=== PATIENT | female | born 1980 | race African-American/Black ===

== ENCOUNTER 2017-05-05 06:49 | Emergency (ER) | payer MEDICAID ==
[~2017-05-05] VITALS: Ht 157.5 cm; Wt 63.5 kg
[2017-05-05] MEDS ORDERED: IBUPROFEN600 MG ORAL ×2 (06:59→07:10)
[2017-05-05] MEDS ORDERED: AMOXICILLIN500 MG ORAL (07:10)
--- NOTE | 2017-05-05 07:20 | Emergency Room Report ---
History of Present Illness General Chief Complaint: Toothache Source: Patient Present Illness HPI Patient present with complaints of dental pain provides most of the history Patient had seen a dentist 2 months ago Was told to return after she had delivery of her baby Patient did deliver approximately 3 weeks ago Several days ago patient began having increased pain to the left dental region And they present for further evaluation There was no reports of fevers or trismus Allergies: Coded Allergies: No Known Allergies (Unverified , 05/05/17) Patient History Past Medical History: see triage record Pertinent Family History: none Last Menstrual Period: n/a Now: No - 2 weeks post Reviewed Nursing Documentation: PMH: Agreed, PSxH: Agreed Nursing Documentation-PMH Past Medical History: No Stated History Review of Systems All Other Systems: negative except mentioned in HPI Physical Exam Vital Signs Date Time Temp Pulse Resp B/P (MAP) Pulse Ox O2 Delivery O2 Flow Rate FiO2 05/05/17 06:52 98.1 75 16 141/100 97 Room Air Sp02 EP Interpretation: reviewed, normal General Appearance: well appearing, no apparent distress Head: normocephalic, atraumatic Eyes: bilateral eye PERRL, bilateral eye EOMI ENT: other - Dental decay left upper molar region, no obvious abscess in the gingival region clinically Neck: full range of motion, supple Respiratory: chest non-tender, lungs clear Cardiovascular #1: regular rate, rhythm Neurologic: alert, oriented x3 Skin: normal color Lymphatic: no adenopathy Medical Decision Making Diagnostic Impression: Primary Impression: dental benjamin ER Course Patient's clinical findings in line with dental pathology including, possible infection/abscess Patient requires to be seen by dental professional At this time she was provided with antibiotics and pain medication And will followup closely Last Vital Signs Date Time Temp Pulse Resp B/P (MAP) Pulse Ox O2 Delivery O2 Flow Rate FiO2 05/05/17 06:52 98.1 75 16 141/100 97 Room Air Status: unchanged Disposition: HOME, SELF-CARE Condition: Stable Scripts Ibuprofen* (MOTRIN*) 600 Mg Tablet 600 MG ORAL Q8H Y for For Pain, #20 TAB 0 Refills Prov: ODALIS GOMES D.O. 05/05/17 Amoxicillin* (AMOXIL*) 500 Mg Capsule 500 MG ORAL THREE TIMES A DAY, #21 CAP Prov: ODALIS GOMES D.O. 05/05/17 Patient Instructions: Dental Caries, [id number], Dental Pain, [id number] Additional Instructions: As mentioned he had seen a dentist 2 months ago. He dentist wanted to see you back after delivery of your child. At this point given the decay of the tooth, it would be appropriate to revisit that dentist ODALIS GOMES D.O. May 05, 2017 07:20
[2017-05-05 07:22] VITALS: BP 138/89
[2017-05-05 07:25] VITALS: BP 138/89
== END 2017-05-05 07:25 | disposition home or self-care (01) ==
LOC: EMR 07:20
DX: K02.9 Dental caries, unspecified (principal)
CPT/HCPCS: 99283